=== PATIENT | female | born 1945 | race Hispanic/Latino ===

== ENCOUNTER 2022-06-12 10:57 | Observation (INO) | payer MEDICARE ==
--- NOTE | 2022-06-12 11:23 | Emergency Department Report ---
ED Altered Mental Status HPI - General Chief Complaint: Altered Mental Status Stated Complaint: AMS Time Seen by Provider: 06/12/22 11:09 Source: patient, EMS Mode of arrival: Stretcher Limitations: No Limitations - History of Present Illness Initial Comments: 76-year-old with multiple medical problems, this morning reportedly was confused and not answering questions. There is no report of trauma. Unclear when symptoms started. MD Complaint: altered mental status, confusion Severity: mild - Related Data Allergies Allergy/AdvReac Type Severity Reaction Status Date / Time No Known Allergies Allergy Verified 06/12/22 11:01 ED Review of Systems ROS: Stated complaint: AMS Other details as noted in HPI Constitutional: denies: chills, fever Eyes: denies: eye pain, eye discharge, vision change ENT: as per HPI Respiratory: no symptoms reported Cardiovascular: denies: chest pain, palpitations Gastrointestinal: denies: abdominal pain, nausea, diarrhea Genitourinary: denies: urgency, dysuria, discharge Neurological: denies: headache, weakness, paresthesias Psychiatric: denies: anxiety, depression Hematological/Lymphatic: denies: easy bleeding, easy bruising ED Past Medical Hx - Past Medical History Hx Hypertension: Yes ED Physical Exam - General Limitations: No Limitations General appearance: alert, in no apparent distress - Head Head exam: Present: atraumatic, normocephalic - Eye Eye exam: Present: normal appearance, PERRL Pupils: Present: normal accommodation - ENT ENT exam: Present: normal exam, normal orophraynx - Neck Neck exam: Present: normal inspection - Respiratory Respiratory exam: Present: normal lung sounds bilaterally - Cardiovascular Cardiovascular Exam: Present: regular rate, normal rhythm - GI/Abdominal GI/Abdominal exam: Present: soft. Absent: distended, tenderness, guarding - Extremities Exam Extremities exam: Present: normal inspection, full ROM - Expanded Neurological Exam Expanded Neurological exam: Present: memory loss-remote event, expressive aphasia Speech: Present: expressive aphasia Cranial nerves: EOM's Intact: Normal, Gag Reflex: Normal, Tongue Deviation: Normal, Nystagmus: Normal, Facial Sensation: Normal, Facial Palsy with Forehead Movement: Normal, Facial Palsy without Forehead Movement: Normal Cerebellar function: Finger to Nose: Normal Upper motor neuron: Gagan Neglect: Normal, Pronator Drift: Normal Sensory exam: Upper Extremity Light Touch: Normal, Upper Extremity Pin Prick: Normal, Upper Extremity Temperature: Normal, UE 2 Point Discrimination: Normal, Lower Extremity Light Touch: Normal, Lower Extremity Pin Prick: Normal, Lower Extremity Temperature: Normal, LE 2 Point Discrimination: Normal Motor strength exam: RUE: 5, LUE: 5, RLE: 5, LLE: 5 Best Eye Response ([place]): (4) open spontaneously Best Motor Response ([place]): (6) obeys commands Best Verbal Response (Cindy): (4) confused conversation Cindy Total: 14 - Psychiatric Psychiatric exam: Present: normal affect, normal mood ED Course Vital Signs 06/12/22 06/12/22 06/12/22 10:57 11:09 12:00 Temperature 98.6 F Pulse Rate 98 H 94 H 78 Respiratory 16 15 16 Rate Blood Pressure 142/58 Blood Pressure 140/70 [Left] O2 Sat by Pulse 95 96 95 Oximetry 06/12/22 13:00 Temperature Pulse Rate 82 Respiratory 14 Rate Blood Pressure 142/58 Blood Pressure [Left] O2 Sat by Pulse 98 Oximetry - Lab Data Result diagrams: 06/12/22 11:41 Lab Results 06/12/22 Range/Units 11:41 Sodium 139 (137-145) mmol/L Potassium 4.5 (3.6-5.0) mmol/L Chloride 101.6 (98-107) mmol/L Carbon Dioxide 23 (22-30) mmol/L Anion Gap 19 mmol/L BUN 16 (7-17) mg/dL Creatinine 1.2 (0.6-1.2) mg/dL Estimated GFR 44 ml/min BUN/Creatinine Ratio 13 % Glucose 129 H (65-100) mg/dL Calcium 9.5 (8.4-10.2) mg/dL Total Bilirubin 0.70 (0.1-1.2) mg/dL AST 11 (5-40) units/L ALT 9 (7-56) units/L Alkaline Phosphatase 64 (35-129) units/L Total Protein 6.6 (6.3-8.2) g/dL Albumin 4.1 (3.9-5) g/dL Albumin/Globulin Ratio 1.6 % Critical care attestation.: If time is entered above; I have spent that time in minutes in the direct care of this critically ill patient, excluding procedure time. ED Disposition Clinical Impression: CVA (cerebral vascular accident) Disposition: ADMITTED INPATIENT Is pt being admited?: Yes Condition: Stable
--- NOTE | 2022-06-12 11:43 | Consultation ---
History of Present Illness - Reason for Consult Consult date: 06/12/22 - History of Present Illness [facility] Consult Note # Demographics Consult Type: Acute Stroke Level 2 (4.5-24 hrs) Patient Location: Emergency Room First Name: benjamin Last Name: johan Date of : 1945 Age: 76 Gender: Female Facility: [facility] Time of Initial Page (): 06/12/2022, 11:18 Time of Return Call (): 06/12/2022, 11:19 # HPI History: presents with altered mentation. Family feels she is more confused than normal. The patient was reading her newspaper, and feels she is no different than normal. Last Known Normal: Unknown # Scores Time of exam and NIHSS (): 06/12/2022, 11:34 Level of Consciousness 1a: [0] = Alert; keenly responsive LOC Questions 1b: [2] = Answers neither correctly LOC Commands 1c: [0] = Performs both tasks correctly Best Gaze 2: [0] = Normal Visual 3: [0] = No visual loss Facial Palsy 4: [0] = Normal symmetrical movements Motor Arm Left 5a: [0] = No drift Motor Arm Right 5b: [0] = No drift Motor Leg Left 6a: [0] = No drift Motor Leg Right 6b: [0] = No drift Limb Ataxia 7: [0] = Absent Sensory 8: [0] = Normal Best Language 9: [1] = Nhbd-[id number]-exogncdb aphasia Dysarthria 10: [0] = Normal Extinction and Inattention 11: [0] = No abnormality NIHSS Total: 3 # Exam Vitals: vital signs reviewed # Data Time Head CT personally read by me (): 06/12/2022, 11:[address]: no bleed preliminarily reviewed by me, please refer to radiology read for official reading # Assessment Impression: Altered Mental Status possible stroke # Plan Thrombolytic/Intervention: NOT IV Thrombolysis or IA Intervention candidate Thrombolytic Exclusion (< 3 hour window): time of onset unclear Thrombolytic Exclusion: > 4.5 hours Labs: Ammonia B12 comprehensive metabolic panel ESR liver function tests TSH urine drug screen ua Imaging: (urgency: routine): CT Angiogram Head and CT Angiogram Neck MRI Brain without contrast Other: telemetry monitoring would not pursue stroke work-up if MRI is negative I have discussed my recommendations with the referring provider # Demographics First Name: benjamin Last Name: johan Facility: [facility] Medications and Allergies Allergies Allergy/AdvReac Type Severity Reaction Status Date / Time No Known Allergies Allergy Verified 06/12/22 11:01 Exam - Constitutional Vitals: Temp Pulse Resp BP Pulse Ox 98.6 F 98 H 16 140/70 95 06/12/22 10:57 06/12/22 10:57 06/12/22 10:57 06/12/22 10:57 06/12/22 10:57
--- NOTE | 2022-06-12 11:48 | Cat Scan Report ---
CT HEAD WITHOUT CONTRAST INDICATION / CLINICAL INFORMATION: Headache. TECHNIQUE: Axial imaging performed from the skull apex through the skull base without the use of cont rast. Sagittal and coronal reformatted images. All CT scans at this location are performed using CT dose reduction for ALARA by means of automated exposure control. COMPARISON: None available. FINDINGS: CEREBRAL PARENCHYMA: No acute parenchymal abnormality is identified. Mild diffuse cortical volume los s and mild chronic microvascular ischemic changes in the white matter are identified. No chronic infa rct. HEMORRHAGE: None. EXTRA-AXIAL SPACES: Normal in size and morphology for the patient's age. VENTRICULAR SYSTEM: Normal in size and morphology for the patient's age. MIDLINE SHIFT OR HERNIATION: None. CEREBELLUM / BRAINSTEM: No significant abnormality. CALVARIUM: No significant abnormality. ORBITS: Normal as visualized. PARANASAL SINUSES / MASTOID AIR CELLS: Normal as visualized. SOFT TISSUES of HEAD: No significant abnormality. ADDITIONAL FINDINGS: None. IMPRESSION: No acute intracranial abnormality. Senescent findings as described. COMMUNICATION: Time of Communication (HOEING ROW BOSS/CDT): 1043 hours Licensed Practitioner Receiving Report: Dr. Vega Signer Name: Dexter Tamez Jr, MD Signed: 06/12/2022 11:44 AM Workstation Name: [id number]
[2022-06-12 13:12] LABS: Albumin 4.1 g/dL (3.9-5); Calcium 9.5 mg/dL (8.4-10.2)
--- NOTE | 2022-06-12 14:37 | History and Physical Report ---
History of Present Illness Chief complaint: She got confused and had slurred speech History of present illness: 76 YO Female with Vascular Dementia, Cerebral Atherosclerosis, HTN, Obesity presents to ED for evaluation. Patient has diminished cognition and provides minimal history. Patient brought by EMS staff, ED staff, as well as patient daughter was at bedside during exam and interview. As per daughter the patient was found to have increased confusion this morning shortly after awakening from sleep as well as slurred speech and inability to answer questions. EMS was notified and upon arrival the patient was found to be in distress with a new focal neurologic deficit. A code stroke was called and the patient was transported to [facility] for further care and evaluation of the aforementioned symptoms. The patient was seen and evaluated in the emergency department. All lab and imaging studies reviewed. Patient found to have clinical symptoms consistent with CVA. Patient admitted to medical floor and initiated on CVA protocol. Teleneurology consulted in ED. Patient deemed outside therapeutic window for tPA. No reports of fever, chills, chest pain, palpitation, productive cough, skin rash, recent contact, unilateral leg swelling, calf pain, individual/family history of DVT/PE/bleeding/blood clotting disorders, prolonged travel, or known exposure to COVID-19. No prior admission for review. No medication listed at time of admission for reconciliation. Advanced care planning conducted in ED. Past History Past Medical History: hypertension, other (See HPI) Past Surgical History: No surgical history, Other (Reviewed) Social history: single. denies: smoking, alcohol abuse, prescription drug abuse Family history: hypertension Medications and Allergies Allergies Allergy/AdvReac Type Severity Reaction Status Date / Time No Known Allergies Allergy Verified 06/12/22 11:01 Review of Systems ROS unobtainable: due to mental status Exam - Constitutional Vitals: Temp Pulse Resp BP Pulse Ox 98.6 F 82 14 142/58 98 06/12/22 10:57 06/12/22 13:00 06/12/22 13:00 06/12/22 13:00 06/12/22 13:00 General appearance: Present: mild distress, obese - EENT Eyes: Present: PERRL ENT: hearing intact, clear oral mucosa - Neck Neck: Present: supple, normal ROM - Respiratory Respiratory effort: normal Respiratory: bilateral: CTA - Cardiovascular Heart Sounds: Present: S1 & S2. Absent: rub, click - Extremities Extremities: pulses symmetrical, No edema Peripheral Pulses: within normal limits - Abdominal General gastrointestinal: Present: soft, non-tender, non-distended, normal bowel sounds Female genitourinary: Present: normal - Integumentary Integumentary: Present: clear, warm, dry - Musculoskeletal Musculoskeletal: generalized weakness - Psychiatric Psychiatric: intact judgment & insight, no memory intact, cooperative - Neurologic Neurologic: CNII-XII intact, moves all extremities Results - Labs CBC & Chem 7: 06/12/22 11:41 Labs: Abnormal lab results 06/12/22 Range/Units 11:41 Glucose 129 H (65-100) mg/dL Assessment and Plan - Patient Problems (1) CVA (cerebral vascular accident) Current Visit: Yes Status: Acute Plan to address problem: CVA protocol: CT head, neuro check, seizure precautions, physical therapy consulted, outpatient therapy consulted, speech therapy consulted, antiplatelet therapy, lipid panel, statin therapy, risk factor reduction, teleneurology consulted in ED. Carotid Doppler, echocardiogram. (2) Hypertension Current Visit: Yes Status: Acute Qualifiers: Hypertension type: primary hypertension Qualified Code(s): I10 - Essential (primary) hypertension Plan to address problem: Monitor blood pressure every shift, continue medical management. Permissive hypertension overnight (3) Obesity hypoventilation syndrome Current Visit: Yes Status: Acute Plan to address problem: Balanced diet, increase physical activity discharge, outpatient pulmonary follow-up for sleep study. (4) Vascular dementia Current Visit: Yes Status: Acute Qualifiers: Dementia behavioral disturbance: without behavioral disturbance Qualified Code(s): F01.50 - Vascular dementia without behavioral disturbance Plan to address problem: Verbal prompting, verbal redirection, benzodiazepine therapy as clinically indicated. (5) Cerebral atherosclerosis Current Visit: Yes Status: Acute Plan to address problem: Risk factor reduction, antiplatelet therapy, supportive care. (6) DVT prophylaxis Current Visit: Yes Status: Acute Plan to address problem: SCD to bilateral lower extremities while in bed (7) Advance care planning Current Visit: Yes Status: Acute Plan to address problem: Disease education conducted, care plan discussed, diagnoses discussed, prognosis discussed, patient family acknowledges understanding and agreement with care p kal. (8) Preventative health care Current Visit: Yes Status: Acute Plan to address problem: Patient family counseled regarding home safety precautions, risk factor reduction, balanced diet, weight reduction, increase physical activity discharge, outpatient follow-up with primary care physician for all age and risk factor appropriate screening test. +30 minutes.
[2022-06-12] MEDS ORDERED: MAGNESIUM HYDROXIDE (MOM) ORAL LIQD UDC PO PRN (15:00)
[2022-06-12] MEDS ORDERED: ALBUTEROL 2.5 MG/3 ML NEBU IH PRN (15:00)
[2022-06-12] MEDS ORDERED: oxyCODONE /ACETAMINOPHEN 5-325MG TAB PO PRN (15:00)
[2022-06-12] MEDS ORDERED: METOCLOPRAMIDE 10 MG TAB PO PRN (15:00)
[2022-06-12] MEDS ORDERED: PROMETHAZINE 25 MG RECT SUPP PR PRN (15:00)
[2022-06-12] MEDS ORDERED: ACETAMINOPHEN 325 MG TAB PO PRN (15:00)
[2022-06-12] MEDS ORDERED: ONDANSETRON 4 MG/2 ML INJ IV PRN (15:00)
[2022-06-12] MEDS ORDERED: HYDROmorphone 0.5 MG/0.5 ML INJ IV PRN (15:00)
[2022-06-12 16:10] LABS: Basophils % (Auto) 0.3 % (0.0-1.8); Eosinophils % (Auto) 0.1 % (0.0-4.3); Hematocrit 35.8 % (30.3-42.9); Hemoglobin 12.3 gm/dl (10.1-14.3); Lymphocytes # (Auto) 1.4 K/mm3 (1.2-5.4); Lymphocytes % (Auto) 11.5 % (13.4-35.0); Mean Corpuscular HGB Conc 34 % (30-34); Mean Corpuscular Volume 93 fl (79-97); Monocytes # (Auto) 1.2 K/mm3 (0.0-0.8); Monocytes % (Auto) 10.4 % (0.0-7.3); Platelet Count 208 K/mm3 (140-440); Red Blood Count 3.87 M/mm3 (3.65-5.03); Red Cell Distribution Width 14.1 % (13.2-15.2)
--- NOTE | 2022-06-12 16:39 | Vascular Lab Report ---
DUPLEX DOPPLER ULTRASOUND CAROTID, BILATERAL INDICATION / CLINICAL INFORMATION: stroke. COMPARISON: None available. FINDINGS: RIGHT CAROTID: No significant atherosclerotic plaque. - PLAQUE ESTIMATE (%): None. - CCA velocity: 90 cm/sec. - ICA peak systolic velocity: 93 cm/sec. - ICA/CCA PSV Ratio: Less than 2. Right Vertebral Artery: Antegrade flow. LEFT CAROTID: Mild atherosclerotic plaque. - PLAQUE ESTIMATE (%): < 50% - CCA velocity: 79 cm/sec. - ICA peak systolic velocity: 95 cm/sec. - ICA/CCA PSV Ratio: Less than 2. Left Vertebral Artery: Antegrade flow. IMPRESSION: 1. Right Internal Carotid Artery: Normal. No stenosis. 2. Left Internal Carotid Artery: Less than 50% diameter stenosis. Velocity criteria are extrapolated from diameter data as defined by the Society of Radiologists in Ul trasound Consensus Conference, Radiology 2003; 229;340-346. NO STENOSIS (NORMAL) - Plaque = none; ICA PSV < 125 cm/sec; ICA/CCA PSV Ratio < 2.0 <50% STENOSIS - Plaque < 50%; ICA PSV < 125 cm/sec; ICA/CCA PSV Ratio < 2.0 50-69% STENOSIS - Plaque > 50%; ICA PSV = 125-230 cm/sec; ICA/CCA PSV Ratio = 2.0-4.0 >70% BUT <100% STENOSIS - Plaque > 50%; ICA PSV > 230 cm/sec; ICA/CCA PSV Ratio > 4.0 NEAR OCCLUSION - Plaque = visible lumen; ICA PSV = high/low/none; ICA/CCA PSV Ratio = variable TOTAL OCCLUSION - Plaque = no lumen; ICA PSV = none; ICA/CCA PSV Ratio = N/A Scribed by: Diana Valentin RDMS, RVT, RMSKS Scribed: 06/12/2022 3:27 PM I have reviewed the images, agree with this report, and edited this report as needed. Signer Name: Epi Mauro MD Signed: 06/12/2022 4:35 PM Workstation Name: [id number]
[2022-06-13] MEDS ORDERED: ASPIRIN 325 MG TAB PO SCH (10:00)
[2022-06-13 11:03] LABS: Color,Urine Yellow (Yellow)
[2022-06-13 11:06] LABS: Bacteria,Urine 1+ /HPF (Negative); Mucus,Urine FEW /HPF
--- NOTE | 2022-06-13 11:46 | Electrocardiograph Report ---
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
--- NOTE | 2022-06-13 16:31 | Discharge Summary ---
Providers - Providers Date of Admission: 06/12/22 14:39 Date of discharge: 06/13/22 Attending physician: YESSI MONTIEL MD 06/12/22 14:39 Occupational Therapy Evaluate and Treat [CONS] Routine Comment: Reason For Exam: Neuro deficits Physical Therapy Evaluation and Treat [CONS] Routine Comment: Reason For Exam: Neuro deficits 06/12/22 14:40 Speech Therapy Evaluation and Treat [CONS] Routine Reason For Exam: swallow eval Primary care physician: [employer] Hospitalization Reason for admission: Presumed acute ischemic CVA Condition: Stable Pertinent studies: Reviewed. Procedures: None. Hospital course: Patient is a 76 YO Female with Vascular Dementia, Cerebral Atherosclerosis, HTN, Obesity presents to ED for evaluation. Patient has diminished cognition and provides minimal history. Patient brought by EMS staff, ED staff, as well as patient daughter was at bedside during exam and interview. As per daughter the patient was found to have increased confusion this morning shortly after awakening from sleep as well as slurred speech and inability to answer questions. EMS was notified and upon arrival the patient was found to be in distress with a new focal neurologic deficit. A code stroke was called and the patient was transported to [facility] for further care and evaluation of the aforementioned symptoms. The patient was seen and evaluated in the emergency department. All lab and imaging studies reviewed. Patient found to have clinical symptoms consistent with CVA. Patient admitted to medical floor and initiated on CVA protocol. Teleneurology consulted in ED. Patient deemed outside therapeutic window for tPA. The patient was started on acute CVA protocol with associated goal-directed therapy/medications. The patient has since returned back to her baseline without any aphasia or motor deficits. It is presumed that the patient likely had a TIA (transient ischemic attack) as opposed to an acute CVA. Patient will be discharging home with aspirin 81 mg daily and atorvastatin 40 mg daily patient expressed understanding. Patient is medically clear for discharge. Disposition: 01 HOME / SELF CARE / HOMELESS Final Discharge Diagnosis (Prints w/discharge instructions): Presumed TIA, insulin-dependent type 2 diabetes mellitus, morbid obesity Time spent for discharge: 45 min Core Measure Documentation - Palliative Care Palliative Care/ Comfort Measures: Not Applicable - Core Measures Any of the following diagnoses?: none Exam - Constitutional Vitals: Temp Pulse Resp BP Pulse Ox 98.8 F 77 22 145/49 94 06/13/22 11:46 06/13/22 11:46 06/13/22 11:46 06/13/22 11:46 06/13/22 11:46 General appearance: Present: no acute distress, well-nourished, obese - EENT Eyes: Present: PERRL, EOM intact ENT: hearing intact, clear oral mucosa, dentition normal - Neck Neck: Present: supple, normal ROM - Respiratory Respiratory effort: normal Respiratory: bilateral: CTA - Cardiovascular Rhythm: regular Heart Sounds: Present: S1 & S2 - Extremities Extremities: no ischemia, pulses intact, pulses symmetrical, No edema, normal temperature, normal color, Full ROM Peripheral Pulses: within normal limits - Abdominal General gastrointestinal: Present: soft, non-tender, non-distended, normal bowel sounds Female genitourinary: Present: deferred - Rectal Rectal Exam: deferred - Integumentary Integumentary: Present: clear, warm, dry - Musculoskeletal Musculoskeletal: strength equal bilaterally - Psychiatric Psychiatric: appropriate mood/affect, intact judgment & insight, memory intact, cooperative - Neurologic Neurologic: CNII-XII intact, moves all extremities - Allied Health Allied health notes reviewed: nursing Plan Activity: no restrictions Diet: diabetic Additional Instructions: Patient is a 76 YO Female with Vascular Dementia, Cerebral Atherosclerosis, HTN, Obesity presents to ED for evaluation. Patient has diminished cognition and provides minimal history. Patient brought by EMS staff, ED staff, as well as patient daughter was at bedside during exam and interview. As per daughter the patient was found to have increased confusion this morning shortly after awakening from sleep as well as slurred speech and inability to answer questions. EMS was notified and upon arrival the patient was found to be in distress with a new focal neurologic deficit. A code stroke was called and the patient was transported to [facility] for further care and evaluation of the aforementioned symptoms. The patient was seen and evaluated in the emergency department. All lab and imaging studies reviewed. Patient found to have clinical symptoms consistent with CVA. Patient admitted to medical floor and initiated on CVA protocol. Teleneurology consulted in ED. Patient deemed outside therapeutic window for tPA. The patient was started on acute CVA protocol with associated goal-directed therapy/medications. The patient has since returned back to her baseline without any aphasia or motor deficits. It is presumed that the patient likely had a TIA (transient ischemic attack) as opposed to an acute CVA. Patient will be discharging home with aspirin 81 mg daily and atorvastatin 40 mg daily patient expressed understanding. Patient is medically clear for discharge. Care Plan Goals: Patient is medically clear for discharge. Assessment: Patient is a 76 YO Female with Vascular Dementia, Cerebral Atherosclerosis, HTN, Obesity presents to ED for evaluation. Patient has diminished cognition and provides minimal history. Patient brought by EMS staff, ED staff, as well as patient daughter was at bedside during exam and interview. As per daughter the patient was found to have increased confusion this morning shortly after awakening from sleep as well as slurred speech and inability to answer questions. EMS was notified and upon arrival the patient was found to be in distress with a new focal neurologic deficit. A code stroke was called and the patient was transported to [facility] for further care and evaluation of the aforementioned symptoms. The patient was seen and evaluated in the emergency department. All lab and imaging studies reviewed. Patient found to have clinical symptoms consistent with CVA. Patient admitted to medical floor and initiated on CVA protocol. Teleneurology consulted in ED. Patient deemed outside therapeutic window for tPA. The patient was started on acute CVA protocol with associated goal-directed therapy/medications. The patient has since returned back to her baseline without any aphasia or motor deficits. It is presumed that the patient likely had a TIA (transient ischemic attack) as opposed to an acute CVA. Patient will be discharging home with aspirin 81 mg daily and atorvastatin 40 mg daily patient expressed understanding. Patient is medically clear for discharge. Follow up with: PRIMARY CARE, [Primary Care Provider] - 3-5 Days Prescriptions: AtorvaSTATin [Lipitor] 40 mg PO QHS #30 tablet Aspirin 81 mg PO QDAY #30 tablet
[2022-06-13 17:06] VITALS: BP 132/46
--- NOTE | 2022-06-13 17:50 | Magnetic Resonance Report ---
MRI BRAIN WITHOUT CONTRAST INDICATION / CLINICAL INFORMATION: evaluate for possible acute ischemic CVA. TECHNIQUE: Multiplanar, multisequence MR images of the brain were obtained. COMPARISON: Head CT 06/12/2022 FINDINGS: BRAIN / INTRACRANIAL CONTENTS: Age-related parenchymal volume loss is demonstrated. Dilatation of the cortical sulci and ventricular system is noted in keeping with the patient's stated age of 76 years. Disproportionate medial temporal lobe atrophy is noted on the right. Periventricular and deep white matter hyperintensities are noted consistent with age-related microvascular ischemic changes. There i s no mass effect. No evidence of intracranial hemorrhage or extra-axial fluid collection is seen. The re is no indication of remote cortical infarction. Diffusion weighted scans are negative. There is no indication of acute ischemic injury. The brainstem and cerebellum have an unremarkable appearance. CRANIOCERVICAL JUNCTION: No abnormalities are identified at the craniocervical junction. VASCULAR FLOW-VOIDS: Normal flow-voids are present within the major intracranial vessels. ORBITS: The orbits have an unremarkable appearance. SINUSES / MASTOIDS: There is no indication of inflammatory disease in the paranasal sinuses or mastoi d air cells. IMPRESSION: 1. Age related involutional changes of parenchymal volume loss and microvascular ischemia. 2. 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 3. No acute intracranial abnormality. Signer Name: Ivan Leonard MD Signed: 06/13/2022 5:46 PM Workstation Name: [id number]
== END 2022-06-13 20:30 | disposition still patient (30) ==
LOC: ED 10:57 → 3A 14:39 → INTOOBSV 14:39
PROVIDERS: ADMIT Internal Medicine; ATTEND Student in an Organized Health Care Education/Training Program
DX: I63.9 Cerebral infarction, unspecified (principal); I10 Essential (primary) hypertension; F01.50 Vascular dementia, unspecified severity, without behavioral disturbance, psychotic disturbance, mood disturbance, and anxiety; I67.2 Cerebral atherosclerosis; E11.9 Type 2 diabetes mellitus without complications; E66.2 Morbid (severe) obesity with alveolar hypoventilation; R29.703 NIHSS score 3; R41.82 Altered mental status, unspecified; Z68.41 Body mass index [BMI] 40.0-44.9, adult; Z79.899 Other long term (current) drug therapy; Z98.890 Other specified postprocedural states
CPT/HCPCS: 36415; 70450; 70551; 80053; 81001; 85025; 87086; 92610; 93005; 93880; 97161; 99284; C8929; G0378; 87076; 87186; 93306; 99285